=== PATIENT | male | born 1990 | race Hispanic/Latino ===

== ENCOUNTER 2018-03-10 14:52 | Emergency (ER) | payer OTHER ==
[2018-03-10 16:05] LABS: CONTROL LINE MONO INT CTR LINE PRESENT; MONO SCRN NEGATIVE (NEGATIVE)
== END 2018-03-10 16:27 | disposition home or self-care (01) ==
LOC: M ED 14:52
DX: J35.1 Hypertrophy of tonsils (principal)
CPT/HCPCS: 86308